=== PATIENT | male | born 1965 | race Two or more races ===

== ENCOUNTER 2023-07-03 20:49 | Emergency (ER) | payer MEDICARE, OTHER ==
[~2023-07-03] VITALS: Ht 157.5 cm; Wt 68.0 kg
[2023-07-03 21:19] VITALS: TEMP 97.7
[2023-07-03] MEDS ORDERED: IBUPROFEN 600 MG TABLET ONE (22:22)
[2023-07-03] MEDS ORDERED: ACETAMINOPHEN ES 500 MG TABLET ONE (22:22)
[2023-07-03] MEDS ORDERED: ACETAMINOPHEN ES 500 MG TABLET PO ONE (22:30)
[2023-07-03] MEDS ORDERED: IBUPROFEN 600 MG TABLET PO ONE (22:30)
[2023-07-03] MEDS ORDERED: IBUP-1953 PO (23:17)
[2023-07-03 23:45] VITALS: BP 115/75; O2SAT 99
== END 2023-07-03 23:45 | disposition home or self-care (01) ==
LOC: ER 20:52
DX: S00.12XA Contusion of left eyelid and periocular area, initial encounter (principal); S20.212A Contusion of left front wall of thorax, initial encounter; Y04.0XXA Assault by unarmed brawl or fight, initial encounter; Y93.89 Activity, other specified; Y92.89 Other specified places as the place of occurrence of the external cause; Y99.8 Other external cause status
CPT/HCPCS: 70486-TC; 71100-TC